=== PATIENT | female | born 1955 | race Native Hawaiian/Other Pacific Islander ===

== ENCOUNTER → 2019-03-25 | Outpatient (CLI) | payer OTHER | LOC: C.MAMMO 14:17 | DX: Z12.31 Encounter for screening mammogram for malignant neoplasm of breast (principal) ==

== ENCOUNTER 2019-03-31 12:55 | Outpatient (CLI) | payer OTHER | END 2019-03-31 12:56 | disposition home or self-care (01) | LOC: C.USIC 12:55 ==